=== PATIENT | female | born 1965 | race Asian ===

== ENCOUNTER → 2018-10-17 | Outpatient (CLI) | payer OTHER ==
[~2018-10-17] MED LIST: DICL50TA2 PO; MULT-658 PO; OMEP-110 PO; TRIA16.52 NS
== END | disposition home or self-care (01) ==
LOC: CFH 14:04
PROVIDERS: ATTEND Nurse Practitioner Family
DX: Z12.31 Encounter for screening mammogram for malignant neoplasm of breast (principal)
CPT/HCPCS: 77063; 77067

== ENCOUNTER 2020-12-04 17:23 | Outpatient (CLI) | payer BC ==
[~2020-12-04 17:23] MED LIST changes: +OMNIPAQUE 350 MG/ML, 100ML BOTTLE ONE
[2020-12-04 18:08] LABS: CREATININE 0.75 mg/dL (0.55-1.02)
== END 2020-12-04 23:59 | disposition home or self-care (01) ==
LOC: RAD 17:23
PROVIDERS: ATTEND Nurse Practitioner Family
DX: I77.810 Thoracic aortic ectasia (principal); I10 Essential (primary) hypertension; N64.9 Disorder of breast, unspecified; R22.2 Localized swelling, mass and lump, trunk; Z76.0 Encounter for issue of repeat prescription
CPT/HCPCS: 36415; 71260; 82565; Q9967